=== PATIENT | female | born 1980 | race Caucasian/White ===

== ENCOUNTER 2018-01-29 12:54 | Emergency (ER) | payer OTHER ==
[~2018-01-29] VITALS: Ht 162.6 cm; Wt 97.5 kg
[~2018-01-29 12:54] MED LIST: TUSSI PRES-B L120 M1 PO; ZITHROMAX1 G/PKT PO
[2018-01-29] MEDS ORDERED: COZAAR25 MG (13:37)
[2018-01-29] MEDS ORDERED: NORFLEX100MG (13:37)
[2018-01-29] MEDS ORDERED: RANITIDINE HCL150 M1 (13:37)
== END 2018-01-29 20:24 | disposition home or self-care (01) ==
LOC: ER 12:54
DX: G43.809 Other migraine, not intractable, without status migrainosus (principal)

== ENCOUNTER 2021-06-20 19:14 | Emergency (ER) | payer OTHER ==
[~2021-06-20] VITALS: Ht 162.6 cm; Wt 117.9 kg
[~2021-06-20 19:14] MED LIST changes: +COZAAR25 MG; +NORFLEX100MG; +RANITIDINE HCL150 M1
[2021-06-20] MEDS ORDERED: METROPOLOL 50 MG. (19:35)
[2021-06-20] MEDS ORDERED: TAGAMET HB200 MG PO (19:57)
[2021-06-20] MEDS ORDERED: VITAMIN D325 MC2 PO (19:58)
== END 2021-06-20 22:34 | disposition home or self-care (01) ==
LOC: ER 19:14
DX: R00.2 Palpitations (principal)

== ENCOUNTER → 2022-03-06 | Emergency (ER) | payer OTHER ==
[~2022-03-06] MED LIST changes: +METROPOLOL 50 MG.; +TAGAMET HB200 MG PO; +VITAMIN D325 MC2 PO
== END | disposition left against medical advice (07) ==
LOC: ER 12:51
DX: Z53.21 Procedure and treatment not carried out due to patient leaving prior to being seen by health care provider (principal)

== ENCOUNTER 2022-03-09 14:45 | Outpatient (CLI) | payer OTHER | END 2022-03-09 15:12 | disposition home or self-care (01) | LOC: ASH CLINIC 14:45 | PROVIDERS: ATTEND General Practice | DX: U07.1 COVID-19 (principal) ==